=== PATIENT | female | born 1985 | race African-American/Black ===

== ENCOUNTER 2017-02-23 08:34 | Emergency (ER) | payer BC ==
[~2017-02-23] VITALS: Ht 165.1 cm; Wt 58.5 kg
[2017-02-23] MEDS ORDERED: cefTRIAXone IM 250 MG VIAL IM ONE (09:30)
[2017-02-23] MEDS ORDERED: metroNIDAZOLE 500 MG TABLET PO ONE (09:30)
[2017-02-23] MEDS ORDERED: AZITHROMYCIN 250 MG TABLET. PO ONE (09:30)
[2017-02-23 10:07] LABS: BILIRUBIN,URINE NEGATIVE (NEG); GLUCOSE,URINE NEGATIVE (NEG); NITRITE,URINE NEGATIVE (NEG); PH,URINE 6.5; PROTEIN,URINE NEGATIVE (NEG-TRACE); UROBILINOGEN,URINE 0.2 mg/dL (0.2 mg/dL)
[2017-02-23 10:17] LABS: SQUAMOUS EPITHELIAL CELL,UR MOD /LPF
[2017-02-23 10:18] LABS: BACTERIA,URINE FEW /HPF (0-FEW)
[2017-02-23 11:10] VITALS: BP 128/71
[2017-02-23] MEDS ORDERED: FLUC150T PO (11:10)
[2017-02-23] MEDS ORDERED: SULF1TAB24 PO (11:10)
--- NOTE | 2017-02-23 11:10 | PHYS DOC ---
Past Medical History Past Medical History: No Pertinent History Past Surgical History: No Surgical History Alcohol Use: Rarely Drug Use: None Adult General Chief Complaint Chief Complaint: VAGINAL PROBLEM HPI HPI Patient is a 31 year old female who presents with vaginal discharge for 1-1/2 weeks and concern for Trichomonas. Patient would like to be tested and treated. Review of Systems Review of Systems Constitutional: Denies fever or chills [] Eyes: Denies change in visual acuity, redness, or eye pain [] HENT: Denies nasal congestion or sore throat [] Respiratory: Denies cough or shortness of breath [] Cardiovascular: No additional information not addressed in HPI [] GI: Vaginal discharge for 1-1/2 weeks, no abdominal pain nausea vomiting or diarrhea. : Denies dysuria or hematuria [] Musculoskeletal: Denies back pain or joint pain [] Integument: Denies rash or skin lesions [] Neurologic: Denies headache, focal weakness or sensory changes [] Endocrine: Denies polyuria or polydipsia [] Current Medications Current Medications Current Medications Medications (Trade) Dose Ordered Sig/Timur Start Time Stop Time Status Last Admin Dose Admin Azithromycin (Zithromax) 1,000 mg 1X ONCE 02/23/17 09:30 02/23/17 09:31 DC 02/23/17 09:45 1,000 MG Ceftriaxone Sodium (Rocephin Im) 250 mg 1X ONCE 02/23/17 09:30 02/23/17 09:31 DC 02/23/17 09:45 250 MG Metronidazole (Flagyl) 2,000 mg 1X ONCE 02/23/17 09:30 02/23/17 09:31 DC 02/23/17 09:45 2,000 MG Allergies Allergies Allergies Coded Allergies Type Severity Reaction Last Updated Verified No Known Drug Allergies 02/23/17 No Physical Exam Physical Exam Constitutional: Well developed, well nourished, no acute distress, non-toxic appearance. [] HENT: Normocephalic, atraumatic, bilateral external ears normal, oropharynx moist, no oral exudates, nose normal. [] Eyes: PERRLA, EOMI, conjunctiva normal, no discharge. [] Neck: Normal range of motion, no tenderness, supple, no stridor. [] Cardiovascular:Heart rate regular rhythm, no murmur [] Lungs & Thorax: Bilateral breath sounds clear to auscultation [] Abdomen: Bowel sounds normal, soft, no tenderness, no masses, no pulsatile masses. [] Pelvic exam External pelvic appears normal, cervix is closed, no CMT, small amount of white discharge in the vaginal vault. No adnexal tenderness. Skin: Warm, dry, no erythema, no rash. [] Back: No tenderness, no CVA tenderness. [] Extremities: No tenderness, no cyanosis, no clubbing, ROM intact, no edema. [] Neurologic: Alert and oriented X 3, normal motor function, normal sensory function, no focal deficits noted. [] Psychologic: Affect normal, judgement normal, mood normal. [] Current Patient Data Vital Signs Vital Signs Date Time Temp Pulse Resp B/P (MAP) Pulse Ox O2 Delivery O2 Flow Rate FiO2 02/23/17 08:45 98.6 73 14 140/76 (97) 98 Room Air 98.6 Lab Values Laboratory Tests Test 02/23/17 08:38 02/23/17 09:40 POC Urine HCG, Qualitative Hcg negative (Negative) Urine Collection Type Void Urine Color Yellow Urine Clarity Clear Urine pH 6.5 Urine Specific [place] 1.020 Urine Protein Negative mg/dL (NEG-TRACE) Urine Glucose (UA) Negative mg/dL (NEG) Urine Ketones (Stick) Negative mg/dL (NEG) Urine Blood Trace (NEG) Urine Nitrite Negative (NEG) Urine Bilirubin Negative (NEG) Urine Urobilinogen Dipstick 0.2 mg/dL (0.2 mg/dL) Urine Leukocyte Esterase Large (NEG) Urine RBC 3-5 /HPF (0-2) Urine WBC 1-4 /HPF (0-4) Urine Squamous Epithelial Cells Mod /LPF Urine Bacteria Few /HPF (0-FEW) Urine Mucus Slight /LPF Microbiology 02/23/17 Wet Prep - Final, Complete EKG EKG [] Radiology/Procedures Radiology/Procedures [] Course & Med Decision Making Course & Med Decision Making Pertinent Labs and Imaging studies reviewed. (See chart for details) Patient is in the ED with complaints of vaginal discharge for 1-1/2 weeks and concern for Trichomonas. She was treated prophylaxis. She was given Flagyl Rocephin and azithromycin. Wet prep was negative for Trichomonas but positive for yeast infection. Urine positive for UTI. Patient was discharged with Bactrim and fluconazole. Follow-up with PCP of the health department as needed for further STD concerns. Dragon Disclaimer Dragon Disclaimer This electronic medical record was generated, in whole or in part, using a voice recognition dictation system. Departure Departure Impression: Primary Impression: Urinary tract infection Additional Impressions: Concern about STD in female without diagnosis Yeast infection Disposition: 01 HOME, SELF-CARE Condition: STABLE Referrals: NO PCP (PCP) Follow-up with your doctor in 1-2 weeks Patient Instructions: Ann Infection, Adult, Sexually Transmitted Disease, [id number], Urinary Tract Infection Additional Instructions: You were seen for vaginal discharge. You were treated prophylaxis for STDs including gonorrhea chlamydia and Trichomonas. Please use protection at all times. Contact all your sex partners, let them know you were treated for STDs and ask them to seek treatment too. You also tested positive for yeast infection. We'll put you on medication for this. Complete your antibiotics for urinary tract infection. Scripts Fluconazole (DIFLUCAN) 150 Mg Tablet 1 TAB PO ONCE, #1 TAB 1 Refill Take one today and one tablet in one week Prov: ROSEMARY GOMEZ APRN 02/23/17 Sulfamethoxazole/Trimethoprim (BACTRIM DS TABLET) 1 Each Tablet 1 TAB PO BID, #14 TAB Prov: ROSEMARY GOMEZ APRN 02/23/17 Problem Qualifiers Primary Impression: Urinary tract infection Urinary tract infection type: acute cystitis Hematuria presence: without hematuria Qualified Codes: N30.00 - Acute cystitis without hematuria ROSEMARY GOMEZ APRN Feb 23, 2017 11:10
== END 2017-02-23 11:20 | disposition home or self-care (01) ==
LOC: ER 08:34
DX: Z11.3 Encounter for screening for infections with a predominantly sexual mode of transmission (principal); N30.00 Acute cystitis without hematuria; B37.41 Candidal cystitis and urethritis
CPT/HCPCS: 81001; 81025; 87491; 87591; 96372; 99284; J0696; Q0111; Q0144

== ENCOUNTER 2017-09-21 08:39 | Emergency (ER) | payer BC ==
[2017-09-21 09:05] LABS: URINE HCG POC HCG NEGATIVE (Negative)
[2017-09-21 09:34] LABS: BILIRUBIN,URINE NEGATIVE (NEG); CLARITY,URINE CLEAR; COLOR,URINE YELLOW; GLUCOSE,URINE NEGATIVE (NEG); NITRITE,URINE NEGATIVE (NEG); PROTEIN,URINE NEGATIVE (NEG-TRACE)
[2017-09-21 09:41] LABS: SQUAMOUS EPITHELIAL CELL,UR MANY /LPF
[2017-09-21 09:42] LABS: AMORPHOUS SEDIMENT,UR PRESENT /HPF; BACTERIA,URINE 0 /HPF (0-FEW); WBC,URINE OCC /HPF (0-4)
[2017-09-22 13:25] LABS: CHLAMYDIA PROBE Negative (Negative); GC PROBE Negative (Negative)
== END 2017-09-21 10:35 | disposition home or self-care (01) ==
LOC: ER 08:39
DX: Z11.3 Encounter for screening for infections with a predominantly sexual mode of transmission (principal); N89.8 Other specified noninflammatory disorders of vagina
CPT/HCPCS: 81001; 81025; 87491; 87591; 99284; Q0111